=== PATIENT | male | born 1970 | race Caucasian/White ===

== ENCOUNTER 2018-05-16 02:53 | Observation (INO) ==
[2018-05-16] MEDS ORDERED: Sod Chloride 0.9% Inj 1,000 ML IV.SIG SCH (03:15)
--- NOTE | 2018-05-16 03:16 | ED ---
HPI General Chief Complaint: Arrhythmia / Palpitations Stated Complaint: Cardiac Time Seen by Provider: 05/16/18 02:59 Source: patient Mode of arrival: EMS Limitations: no limitations History of Present Illness HPI narrative: Next. He reports palpitations and tachycardia to a rate of 170 at home. Woke him up from sleep. He reports a history of PVCs. He has hypertension hyperlipidemia. He reports compliance with amlodipine and a statin. He denies drug alcohol abuse. He denies tobaccoism. There is no history of A. fib or SVT the patient is aware. He denies excessive caffeine consumption. Associated symptoms include shortness of breath. The patient describes some swelling the legs for the past few days. He has had no fever or chills. He reports no change in his daily routine and is unsure why he would have these symptoms tonight. At the time of my interview the patient reports taking Lortab daily amlodipine daily some vitamins and a statin daily. MD complaint: Reports rapid heart beat, "heart racing", "skipped beats" and palpitations Onset (ago): minute(s) (45) Duration: intermittent Severity: mild Context: Reports occurred during rest Associated symptoms: Reports chest pain, shortness of breath and other ( Dizziness) Related Data Home Medications Medication Instructions Recorded Confirmed amlodipine 10 mg PO DAILY 05/16/18 05/16/18 aspirin [Aspir-81] 81 mg PO DAILY 05/16/18 05/16/18 atorvastatin 20 mg PO DAILY 05/16/18 05/16/18 coenzyme Q10 [CoQ-10] 100 mg PO DAILY 05/16/18 05/16/18 hydrocodone-acetaminophen 1 tab PO Q6H 05/16/18 05/16/18 lorazepam [Ativan] 1 mg PO BID 05/16/18 05/16/18 [id number] fum See Label Instructions .ROUTE 05/16/18 05/16/18 [Multi Vitamin] .COMPLEX Allergies Allergy/AdvReac Type Severity Reaction Status Date / Time No Known Allergies Allergy Verified 05/16/18 03:06 Review of Systems ROS: all other systems reviewed are negative [facility] Medical History Medical History HTN (hypertension) (Acute) Tibia/fibula fracture (Acute) Hyperlipemia (Acute) Thoracic compression fracture (Acute) Social History Social History Substance History: No History of Abuse Second Hand Smoke Exposure: No Smoking Status: Former smoker Tobacco Type: Cigarettes How Often Do You Have a Drink Containing Alcohol: Monthly or less Recent Travel in [facility] within the Last 8 Weeks: No Recent Out of Country Travel within the Last 8 Weeks: No Immunization History Tetanus Immunization: <5 Years Exam Narrative Exam Narrative: GENERAL: 47-year-old male well-nourished well-developed mildly anxious speaking full sentences SKIN: Focused skin assessment warm/dry. HEAD: Atraumatic. Normocephalic. EYES: Pupils equal and round. No scleral icterus. No injection or drainage. ENT: No nasal bleeding or discharge. Mucous membranes pink and moist. NECK: Trachea midline. No JVD. CARDIOVASCULAR: Regular rate and rhythm. No murmur appreciated. RESPIRATORY: No accessory muscle use. Clear to auscultation. Breath sounds equal bilaterally. GASTROINTESTINAL: Abdomen soft, non-tender, nondistended. Hepatic and splenic margins not palpable. MUSCULOSKELETAL: No obvious deformities. No clubbing. No cyanosis. No edema. NEUROLOGICAL: Awake and alert. No obvious cranial nerve deficits. Motor grossly within normal limits. Normal speech. PSYCHIATRIC: Appropriate mood and affect; insight and judgment normal. Course Initial Documented Vital Signs Temperature 97.8 F 05/16/18 02:55 Pulse Rate 102 H 05/16/18 02:55 Respiratory Rate 18 05/16/18 02:55 Blood Pressure 113/81 05/16/18 02:55 Pulse Oximetry 99 05/16/18 02:55 Last Documented Vital Signs Temperature 97.8 F 05/16/18 02:55 Pulse Rate 92 H 05/16/18 03:12 Respiratory Rate 18 05/16/18 03:12 Blood Pressure 113/81 05/16/18 02:55 Pulse Oximetry 98 05/16/18 03:12 Medical Decision Making [facility] Narrative Medical decision making narrative: Patient has rested without complaint in the ED. Chest pain center evaluation discussed with the patient who states he would prefer to undergo evaluation which seems reasonable given nature of complaint. EKG shows a sinus rhythm without ischemic injury pattern. The troponin is undetectable. CT pulmonary angiogram reveals no PE. There is no pancreatitis. No arrhythmia during ED stay. The patient denies any change in medication lately. Medical Screen Exam Complete: Yes Emergency Medical Condition: Yes Differential Diagnosis Differential Diagnosis: NSTEMI, unstable angina, coronary vasospasm, PE, PTX, aortic dissection, pericarditis, myocarditis, endocarditis, PNA, esophageal disease, aneurysm, musculoskeletal etiologies, anxiety, cocaine/sympathomimetic abuse Lab Data Lab results reviewed: Yes I reviewed the patient's lab results. Lab results narrative: Troponin less than 0.02 BNP less than 2 LFTs essentially unremarkable Result diagrams: 05/16/18 03:15 05/16/18 03:15 Lab Results 05/16/18 05/16/18 05/16/18 Range/Units 03:15 03:15 03:15 WBC (4.0-11.0) th/mm3 RBC (4.50-5.90) mil/mm3 Hgb (13.0-17.0) gm/dL Hct (39.0-51.0) % MCV (80.0-100.0) fL MCH (27.0-34.0) pg MCHC (32.0-36.0) % RDW (11.6-17.2) % Plt Count (150-450) th/mm3 MPV (7.0-11.0) fL Neut % (Auto) (16.0-70.0) % Lymph % (Auto) (9.0-44.0) % [place] % (Auto) (0.0-8.0) % Eos % (Auto) (0.0-4.0) % Baso % (Auto) (0.0-2.0) % Neut # (Auto) (1.8-7.7) th/mm3 Lymph # (Auto) (1.0-4.8) th/mm3 [place] # (Auto) (0.0-0.9) th/mm3 Eos # (Auto) (0.0-0.4) th/mm3 Baso # (Auto) (0.0-0.2) th/mm3 WBC Differential Differential Comment PT 11.3 (9.8-11.6) sec INR 1.1 Ratio APTT 25.6 (24.3-30.1) sec Sodium 138 (136-145) meq/L Potassium 3.9 (3.5-5.1) meq/L Chloride 105 (98-107) meq/L Carbon Dioxide 27.4 (21.0-32.0) meq/L Anion Gap 6 (5-15) meq/L BUN 22 H (7-18) mg/dL Creatinine 0.83 (0.60-1.30) mg/dL Estimated GFR Greater than 89 (>89) mL/min Random Glucose 139 H (74-106) mg/dL Calcium 7.9 L (8.5-10.1) mg/dL Total Bilirubin 0.4 (0.2-1.0) mg/dL AST 42 H (15-37) U/L ALT 78 (12-78) U/L Alkaline Phosphatase 130 H (45-117) U/L Troponin I Less than 0.02 L (0.02-0.05) ng/mL B-Natriuretic Peptide Less than 2 (0-100) pg/mL Total Protein 7.2 (6.4-8.2) g/dL Albumin 3.7 (3.4-5.0) g/dL Lipase 80 (73-393) U/L 05/16/18 Range/Units 03:15 WBC 12.3 H (4.0-11.0) th/mm3 RBC 4.68 (4.50-5.90) mil/mm3 Hgb 13.3 (13.0-17.0) gm/dL Hct 39.9 (39.0-51.0) % MCV 85.3 (80.0-100.0) fL MCH 28.4 (27.0-34.0) pg MCHC 33.3 (32.0-36.0) % RDW 12.8 (11.6-17.2) % Plt Count 278 (150-450) th/mm3 MPV 8.1 (7.0-11.0) fL Neut % (Auto) 84.8 H (16.0-70.0) % Lymph % (Auto) 7.9 L (9.0-44.0) % [place] % (Auto) 5.8 (0.0-8.0) % Eos % (Auto) 1.1 (0.0-4.0) % Baso % (Auto) 0.4 (0.0-2.0) % Neut # (Auto) 10.4 H (1.8-7.7) th/mm3 Lymph # (Auto) 1.0 (1.0-4.8) th/mm3 [place] # (Auto) 0.7 (0.0-0.9) th/mm3 Eos # (Auto) 0.1 (0.0-0.4) th/mm3 Baso # (Auto) 0.1 (0.0-0.2) th/mm3 WBC Differential . Differential Comment Auto diff final PT (9.8-11.6) sec INR Ratio APTT (24.3-30.1) sec Sodium (136-145) meq/L Potassium (3.5-5.1) meq/L Chloride (98-107) meq/L Carbon Dioxide (21.0-32.0) meq/L Anion Gap (5-15) meq/L BUN (7-18) mg/dL Creatinine (0.60-1.30) mg/dL Estimated GFR (>89) mL/min Random Glucose (74-106) mg/dL Calcium (8.5-10.1) mg/dL Total Bilirubin (0.2-1.0) mg/dL AST (15-37) U/L ALT (12-78) U/L Alkaline Phosphatase (45-117) U/L Troponin I (0.02-0.05) ng/mL B-Natriuretic Peptide (0-100) pg/mL Total Protein (6.4-8.2) g/dL Albumin (3.4-5.0) g/dL Lipase (73-393) U/L Imaging Data Radiologist's impression: Chest X-Ray 05/16/18 03:08 CONCLUSION: No acute cardiopulmonary disease. Chest CTA 05/16/18 03:09 CONCLUSION: No evidence of pulmonary embolism. ECG Data Attestation: I personally reviewed and interpreted this ECG as follows: (sinus, rate 89, normal axis intervals no significant) Discharge Plan Discharge Disposition Patient Disposition: 30 Still Patient Physicians Team ED Provider: Kavon Espinoza Primary Care Provider: April Linder Attending Provider: Pako Valdez Status ED Status: Admitted Observation Patient
[2018-05-16 03:38] LABS: Baso # (Auto) 0.1 th/mm3 (0.0-0.2); Baso % (Auto) 0.4 % (0.0-2.0); Eos # (Auto) 0.1 th/mm3 (0.0-0.4); Eos % (Auto) 1.1 % (0.0-4.0); Hematocrit 39.9 % (39.0-51.0); Hemoglobin 13.3 gm/dL (13.0-17.0); Lymph % (Auto) 7.9 % (9.0-44.0); Mean Corpuscular HGB Conc 33.3 % (32.0-36.0); Mean Corpuscular Hemoglobin 28.4 pg (27.0-34.0); Mean Corpuscular Volume 85.3 fL (80.0-100.0); Mean Platelet Volume 8.1 fL (7.0-11.0); Mono # (Auto) 0.7 th/mm3 (0.0-0.9); Mono % (Auto) 5.8 % (0.0-8.0); Neut # (Auto) 10.4 th/mm3 (1.8-7.7); Neut % (Auto) 84.8 % (16.0-70.0); Platelet Count 278 th/mm3 (150-450); Red Blood Count 4.68 mil/mm3 (4.50-5.90); Red Cell Distribution Width 12.8 % (11.6-17.2); White Blood Count 12.3 th/mm3 (4.0-11.0)
[2018-05-16 03:48] LABS: Activated Partial Thrombo Time 25.6 sec (24.3-30.1); INR 1.1 Ratio; Prothrombin Time 11.3 sec (9.8-11.6)
[2018-05-16 03:58] LABS: Alanine Aminotransferase 78 U/L (12-78); Albumin 3.7 g/dL (3.4-5.0); Anion Gap 6 meq/L (5-15); Aspartate Aminotransferase 42 U/L (15-37); Blood Urea Nitrogen 22 mg/dL (7-18); Calcium 7.9 mg/dL (8.5-10.1); Carbon Dioxide 27.4 meq/L (21.0-32.0); Chloride 105 meq/L (98-107); Glomerular Filtration Rate Greater Than 89 mL/min (>89); Glucose,Random 139 mg/dL (74-106); Lipase 80 U/L (73-393); Potassium 3.9 meq/L (3.5-5.1); Sodium 138 meq/L (136-145)
[2018-05-16 04:01] LABS: Alkaline Phosphatase 130 U/L (45-117); Total Protein 7.2 g/dL (6.4-8.2)
--- NOTE | 2018-05-16 04:05 | CT ---
EXAM DATE: 05/16/2018 3:30 AM EDT AGE/SEX: 47 years / Male INDICATIONS: Chest pain and dizziness. CLINICAL DATA: This is the patient's initial encounter. Patient reports that signs and symptoms have been present for 1 day and indicates a pain score of 8/10. MEDICAL/SURGICAL HISTORY: Hypertension. . T-spine fracture. RADIATION DOSE: 18.39 CTDI (mGy) COMPARISON: No prior exams available for comparison. TECHNIQUE: Volumetric scanning was performed using a multi-row detector CT scanner during bolus infu qian of 70 ml Omnipaque 350 (iohexol) nonionic water-soluble contrast as a single exam dose. The cherri a was post processed with a variety of visualization algorithms including full volume maximum intensi ty projection and sliding thin slab reformation. Using automated exposure control and adjustment of the mA and/or kV according to patient size, radiation dose was kept as low as reasonably achievable t o obtain optimal diagnostic quality images. DICOM format image data is available electronically for review and comparison. FINDINGS: Examination of the pulmonary vasculature demonstrates good filling of the main, lobar and segmental b ranches. There are no filling defects to suggest pulmonary embolism. Multiplanar reconstructions are also unremarkable. The lungs are free of acute parenchymal opacity. No pulmonary nodules or pleural effusions are identi fied. Examination of the mediastinum demonstrates no abnormally enlarged lymph nodes by CT criteria . No axillary or hilar abnormalities are identified. Coronary artery calcifications are not present. There is decreased density of the liver with respect to the spleen compatible with fatty infiltration . The spleen is unremarkable. CONCLUSION: No evidence of pulmonary embolism. Electronically signed by: Connor Rinaldi MD 05/16/2018 4:04 AM EDT
--- NOTE | 2018-05-16 04:19 | XR ---
EXAM DATE: 05/16/2018 3:08 AM EDT AGE/SEX: 47 years / Male INDICATIONS: Cough, chest pain for 3 days CLINICAL DATA: This is the patient's initial encounter. Patient reports that signs and symptoms have been present for 3 days and indicates a pain score of 5/10. MEDICAL/SURGICAL HISTORY: None. None. COMPARISON: No prior exams available for comparison. FINDINGS: A single AP view of the chest demonstrates the lungs to be symmetrically aerated without evidence of mass, infiltrate or effusion. The cardiomediastinal contours are unremarkable. Osseous structures a re intact. CONCLUSION: No acute cardiopulmonary disease. Electronically signed by: Connor Rinaldi MD 05/16/2018 4:18 AM EDT
[2018-05-16] MEDS ORDERED: ALPRAZolam 0.25 MG Tablet PO PRN (04:56)
[2018-05-16] MEDS ORDERED: Morphine Inj 4 MG/ML Vial IV.PUSH PRN (04:56)
[2018-05-16 06:48] LABS: Creatine Kinase 208 U/L (39-308)
[2018-05-16] MEDS ORDERED: Aspirin 325 MG Tablet PO SCH (09:00)
[2018-05-16] MEDS ORDERED: Acetaminophen 500 MG Tablet PO PRN (09:00)
--- NOTE | 2018-05-16 09:56 | P.HPCA ---
History of Present Illness Primary Care Physician: SHAQUILLE Edwards Chief Complaint: Elevated heart rate History of Present Illness: 47 year old male with history of hypertension and hyperlipidemia presents emergency room for further evaluation of elevated heart rate and substernal pressure. Onset 0200. Described as quick onset, fast, regular heart beat. Heart rate reported to be 170. Accompanying chest pressure, dizziness and nausea. No vomiting, dyspnea, or diaphoresis. No precipitating or relieving factors. Denies similar pain in the past. No recent illness, fever or chills. Times 2 days of intermittent nausea, dizziness, exertional dyspnea recovers within 5-10 minutes. Mid abdominal pressure seems to occur after eating for the last 3 days. No acid reflex or sour taste in month. History of SVT, last episode age 31. [address] Funes. No recent cardiac testing. Past cardiac testing No recent cardiac testing. Remote exercise stress test. Social history Known hypertension and hyperlipidemia. No known coronary artery disease or diabetes. Former smoker 2-3 pack/daily quit 2 years ago. No alcohol or recreational drug use. . 9-month-old son. Works 2 jobs. Family history X2 grandparents from aortic aneurysm in her 40s. - Diagnosis (1) Atypical chest pain (2) History of hypertension (3) History of hyperlipidemia Review of Systems All other systems reviewed negative except as stated in HPI PMFSH - History History Provided By: Patient - Medical History Medical History: Medical History (Last Updated 05/16/18 @ 03:11 by Amanda Lucio RN) HTN (hypertension) Hyperlipemia Thoracic compression fracture Tibia/fibula fracture - Family History Family History: Family History (Last Updated 05/16/18 @ 11:40 by SHAQUILLE Cohen) Grandparent Aortic aneurysm Grandparent Aortic aneurysm Mother Cancer Hypertension Father Heart murmur, aortic - Social History I have reviewed the patient's Social History: Yes - Tobacco History Second Hand Smoke Exposure: No Tobacco Use In Past 30 Days: No Smoking Status: Former smoker (Quit 2 years ago) Tobacco Type: Cigarettes Packs Per Day: 2.5 Years Smoked: 30 - Alcohol History How Often Do You Have a Drink Containing Alcohol: Monthly or less - Substance Use History Substance History: No History of Abuse - Travel History History of Recent Travel: No Recent Travel in the [place] Within the Last 8 Weeks: No Recent Travel Out of the Country Within the Last 8 Weeks: No - Immunization History Tetanus Immunization: <5 Years Medications and Allergies Active Medications: Active Medications Acetaminophen (Tylenol) 500 mg PO Q4H PRN PRN Reason: HEADACHE Hydrocodone Bitart/Acetaminophen ([place] 7.5/325) 1 tab PO Q4H PRN PRN Reason: PAIN SCALE 1 TO 7 Alprazolam (Xanax) 0.25 mg PO Q8H PRN PRN Reason: ANXIETY Aspirin (Aspirin) 325 mg PO DAILY JONY Last Admin: 05/16/18 09:04 Dose: 325 mg Sodium Chloride (Ns Inj) 1,000 mls @ 0 mls/hr IV.SIG BOLUS [facility] Last Infusion: 05/16/18 04:25 Dose: Infused Morphine Sulfate (Morphine Inj) 2 mg IV.PUSH Q4H PRN PRN Reason: PAIN SCALE 8 TO 10 Nitroglycerin (Nitrostat Sl) 0.4 mg SL Q5M PRN PRN Reason: CHEST PAIN Ondansetron HCl (Zofran Inj) 4 mg IV.PUSH Q6H PRN PRN Reason: NAUSEA Sodium Chloride (Ns Flush) 2 ml IV.FLUSH UNSCH PRN PRN Reason: FLUSH AFTER USING IV ACCESS Sodium Chloride (Ns Flush) 2 ml IV.FLUSH UNSCH PRN PRN Reason: FLUSH AFTER USING IV ACCESS Allergies Allergy/AdvReac Type Severity Reaction Status Date / Time No Known Allergies Allergy Verified 05/16/18 03:06 Home Medications Medication Instructions Recorded Confirmed Type amlodipine 10 mg PO DAILY 05/16/18 05/16/18 History aspirin [Aspir-81] 81 mg PO DAILY 05/16/18 05/16/18 History atorvastatin 20 mg PO DAILY 05/16/18 05/16/18 History coenzyme Q10 [CoQ-10] 100 mg PO DAILY 05/16/18 05/16/18 History hydrocodone-acetaminophen 1 tab PO Q6H 05/16/18 05/16/18 History lorazepam [Ativan] 1 mg PO BID 05/16/18 05/16/18 History [id number] fum See Label Instructions .ROUTE 05/16/18 05/16/18 History [Multi Vitamin] .COMPLEX Exam Vital signs: Vital Signs 05/16/18 02:55 05/16/18 03:12 05/16/18 04:56 Temperature 97.8 F Pulse Rate 102 H 91 H 72 Respiratory Rate 18 18 Blood Pressure 113/81 Pulse Oximetry 99 98 98 05/16/18 06:13 05/16/18 07:00 05/16/18 07:27 Temperature Pulse Rate 58 L 56 L 56 L Respiratory Rate 14 18 Blood Pressure 96/51 L 89/56 L Pulse Oximetry 98 98 05/16/18 09:05 Temperature 97.7 F Pulse Rate 83 Respiratory Rate 16 Blood Pressure 111/72 Pulse Oximetry 98 Intake & Output 05/15/18 05/16/18 05/16/18 18:59 06:59 18:59 Intake Total 1000 / 1000 Balance 1000 / 1000 Weight 81.647 kg Intake: IV 1000 / 1000 NS Inj 1,000 ML @ Wide Open IV. 1000 / 1000 SIG BOLUS JONY Rx#:[id number] Narrative: GENERAL: Alert WN, WD, NAD, pleasant, male HEAD: NC, AT EYES: Sclera clear, conjunctiva without injection, pupils equal and round ENT: Mucous membranes pink and moist NECK: Supple, no masses, trachea midline CV: RRR, without murmur, rub, gallop, no JVD, S1-S2 no S3-S4. No carotid bruits. Chest wall nontender to palpation RESP: Clear lungs throughout bilateral, no crackles, wheeze, rhonchi, symmetrical chest rise, nonlabored, able to speak in full sentences ABD: Soft, NT, ND, no masses, positive bowel tones EXT: Pulses +2x4, trace bilateral lower extremity edema, mild varicosities bilateral ankles MS: Normal tone x4 extremities, nontender, no obvious deformities, full range of motion NEURO: CN II through CN XII grossly intact, motor strength 5/5 PSYCH: A+O x3, pleasant affect, appropriate speech, mood, insight and judgment SKIN: Normal turgor, normal texture, no lesions, no rashes, brisk cap refill, even hair distribution, multiple tattoos Results 05/16/18 03:15 05/16/18 03:15 Cardiac Enzymes 05/16/18 05/16/18 05/16/18 Range/Units 03:15 03:15 06:09 AST 42 H (15-37) U/L Troponin I Less than 0.02 L Less than 0.02 L (0.02-0.05) ng/mL B-Natriuretic Peptide Less than 2 (0-100) pg/mL Coagulation 05/16/18 05/16/18 Range/Units 03:15 03:15 PT 11.3 (9.8-11.6) sec APTT 25.6 (24.3-30.1) sec B-Natriuretic Peptide Less than 2 (0-100) pg/mL CBC 05/16/18 Range/Units 03:15 WBC 12.3 H (4.0-11.0) th/mm3 RBC 4.68 (4.50-5.90) mil/mm3 Hgb 13.3 (13.0-17.0) gm/dL Hct 39.9 (39.0-51.0) % Plt Count 278 (150-450) th/mm3 Neut # (Auto) 10.4 H (1.8-7.7) th/mm3 Lymph # (Auto) 1.0 (1.0-4.8) th/mm3 [place] # (Auto) 0.7 (0.0-0.9) th/mm3 Eos # (Auto) 0.1 (0.0-0.4) th/mm3 Baso # (Auto) 0.1 (0.0-0.2) th/mm3 Comprehensive Metabolic Panel 05/16/18 Range/Units 03:15 Sodium 138 (136-145) meq/L Potassium 3.9 (3.5-5.1) meq/L Chloride 105 (98-107) meq/L Carbon Dioxide 27.4 (21.0-32.0) meq/L BUN 22 H (7-18) mg/dL Creatinine 0.83 (0.60-1.30) mg/dL Calcium 7.9 L (8.5-10.1) mg/dL AST 42 H (15-37) U/L ALT 78 (12-78) U/L Alkaline Phosphatase 130 H (45-117) U/L Total Protein 7.2 (6.4-8.2) g/dL Albumin 3.7 (3.4-5.0) g/dL Intake and Output 05/15/18 05/16/18 05/16/18 22:59 06:59 14:59 Intake Total 1000 / 1000 Balance 1000 / 1000 Intake: IV 1000 / 1000 NS Inj 1,000 ML @ Wide Open IV. 1000 / 1000 SIG BOLUS JONY Rx#:[id number] Other: Weight 81.647 kg - Imaging and Cardiology Imaging: Impressions Chest X-Ray 05/16/18 03:08 CONCLUSION: No acute cardiopulmonary disease. Chest CTA 05/16/18 03:09 CONCLUSION: No evidence of pulmonary embolism. EKG interpretations - EKG EKG results cardiology: sinus rhythm, normal axis, normal QRS, normal ST/T Caprini VTE Risk Assessment Caprini VTE Risk Assessment: No/Low Risk (score <= 1) Caprini Risk Assessment Model: Point Value = 1 Point Value = 2 Point Value = 3 Point Value = 5 Age 41-60 Minor surgery BMI > 25 kg/m2 Swollen legs Varicose veins or History of unexplained or recurrent spontaneous Oral contraceptives or hormone replacement Sepsis (< 1 month) Serious lung disease, including pneumonia (< 1 month) Abnormal pulmonary function Acute myocardial infarction Congestive heart failure (< 1 month) History of inflammatory bowel disease Medical patient at bed rest Age 61-74 Arthroscopic surgery Major open surgery (> 45 min) Laparoscopic surgery (> 45 min) Malignancy Confined to bed (> 72 hours) Immobilizing plaster cast Central venous access Age >= 75 History of VTE Family history of VTE Factor V Leiden Prothrombin [id number] Lupus anticoagulant Anticardiolipin antibodies Elevated serum homocysteine Heparin-induced thrombocytopenia Other congenital or acquired thrombophilia Stroke (< 1 month) Elective arthroplasty Hip, pelvis, or leg fracture Acute spinal cord injury (< 1 month) Prophylaxis Regimen: Total Risk Factor Score Risk Level Prophylaxis Regimen 0-1 Low Early ambulation 2 Moderate Order ONE of the following: *Sequential Compression Device (SCD) *Heparin 5000 units SQ BID 3-4 Higher Order ONE of the following medications: *Heparin 5000 units SQ TID *Enoxaparin/Lovenox 40 mg SQ daily (WT < 150 kg, CrCl > 30 mL/min) *Enoxaparin/Lovenox 30 mg SQ daily (WT < 150 kg, CrCl > 10-29 mL/min) *Enoxaparin/Lovenox 30 mg SQ BID (WT < 150 kg, CrCl > 30 mL/min) AND/OR *Sequential Compression Device (SCD) 5 or more Highest Order ONE of the following medications: *Heparin 5000 units SQ TID (Preferred with Epidurals) *Enoxaparin/Lovenox 40 mg SQ daily (WT < 150 kg, CrCl > 30 mL/min) *Enoxaparin/Lovenox 30 mg SQ daily (WT < 150 kg, CrCl > 10-29 mL/min) *Enoxaparin/Lovenox 30 mg SQ BID (WT < 150 kg, CrCl > 30 mL/min) AND *Sequential Compression Device (SCD) Assessment and Plan - Assessment (1) Atypical chest pain Code(s): R07.89 - Other chest pain Status: Acute Plan: Admitted chest pain center. ACS ruled out with 3 sets of EKGs and cardiac enzymes. Will be seen and evaluated by Dr. James Gaytan. Discussed likely will proceed with exercise cardiac testing later this morning. If unremarkable , plans would be to discharge with follow-up with PCP. Further disposition after evaluation by marine meteorologist. (2) History of hypertension Code(s): Z86.79 - Personal history of other diseases of the circulatory system Status: Chronic Plan: Continue amlodipine. Discussed importance of tight blood pressure control, increasing daily activity, and adhering to a low-sodium diet with limit of 2000 mg daily. (3) History of hyperlipidemia Code(s): Z86.39 - Personal history of other endocrine, nutritional and metabolic disease Status: Chronic Plan: Continue atorvastatin. Continued adding lifestyle and dietary modifications.
[2018-05-16 10:47] LABS: Creatine Kinase 169 U/L (39-308)
[2018-05-16] MEDS ORDERED: Famotidine 20 MG Tablet PO ONE (11:36)
[2018-05-16 11:37] VITALS: RESP 18
[2018-05-16] MEDS ORDERED: Aluminum/Magnesium/Simethacone Susp 30 ML UDC PO ONE (11:37)
[2018-05-16 16:49] VITALS: BP 116/78; PULSE 78; TEMP 98.7; O2SAT 98
--- NOTE | 2018-05-16 16:51 | TR ---
Date Performed: 05/16/2018 Time Performed: 14:50:56 DOCTOR: James Gaytan DRUG LIST: CLINICAL HISTORY: REASON FOR TEST: Chest pain REASON FOR ENDING: OBSERVATION: CONCLUSION: [place] protocol completed. Stopped sec to exceeding target heart rate and leg fatigue . Maximum ES=502 Target HR Achieved=91.0% Maximum EQ=328/100 Total Exercise Time=10:31. No reprod stewart st discomfort. Rare PVC. Great exercise tolerance. No st t segment changes to sugg ischemia. Normal b p response. Recovery quick and unremarkable. COMMENTS: Conclusion: Normal treadmill exercise. No evidence of ischemia.
--- NOTE | 2018-05-16 18:03 | ECG ---
Date Performed: 05/16/2018 Time Performed: 09:08:48 PTAGE: 47 years EKG: Sinus rhythm NORMAL ECG PREVIOUS TRACING : 05/16/2018 06.06 Since the previous tracing, no significant change noted DOCTOR: Lane Cadena Interpretating Date/Time 05/16/2018 18:02:09
--- NOTE | 2018-05-16 18:05 | ECG ---
Date Performed: 05/16/2018 Time Performed: 06:06:14 PTAGE: 47 years EKG: Sinus rhythm WITH FIRST DEGREE AV BLOCK ABNORMAL ECG PREVIOUS TRACING : 05/16/2018 02.59 Since the previous tracing, no significant change noted DOCTOR: Lane Cadena Interpretating Date/Time 05/16/2018 18:03:49
--- NOTE | 2018-05-16 18:08 | ECG ---
Date Performed: 05/16/2018 Time Performed: 02:59:39 PTAGE: 47 years EKG: Sinus rhythm POSSIBLE LEFT ATRIAL ENLARGEMENT BORDERLINE ECG PREVIOUS TRACING : 12/15/2011 00.29 Since the previous tracing, no significant change noted DOCTOR: Lane Cadena Interpretating Date/Time 05/16/2018 18:06:57
== END 2018-05-16 17:30 | disposition home or self-care (01) ==
LOC: NEPE 02:53 → NEDA 02:53 → NEPGCP 10:49
PROVIDERS: ADMIT Internal Medicine Interventional Cardiology; ATTEND Internal Medicine Interventional Cardiology
DX: I10 Essential (primary) hypertension; R07.89 Other chest pain; R42 Dizziness and giddiness; E78.5 Hyperlipidemia, unspecified; R94.31 Abnormal electrocardiogram [ECG] [EKG]; R11.0 Nausea; F17.210 Nicotine dependence, cigarettes, uncomplicated; M48.54XA Collapsed vertebra, not elsewhere classified, thoracic region, initial encounter for fracture